=== PATIENT | female | born 1940 | race Caucasian/White ===

== ENCOUNTER 2018-05-09 17:20 | Inpatient (IN) | payer OTHER, MEDICARE ==
[~2018-05-09] VITALS: Ht 160 cm; Wt 67.8 kg
[2018-05-09 17:35] VITALS: Ht 160 cm; Wt 67.8 kg
[2018-05-09 18:25] LABS: BASOPHIL % 0.3 % (0-2)
[2018-05-09 18:27] LABS: PLATELET COUNT 408 x10^3mcL (130-400); RED CELL DISTRIBUTION WIDTH 16.2 % (11.5-14.5)
[2018-05-09 18:28] LABS: UA SPECIFIC GRAVITY 1.025 (1.005-1.035); microscopic required? YES; urine erythrocyte TRACE (NEGATIVE)
[2018-05-09 18:38] LABS: CALCIUM 9.8 mg/dL (8.5-10.1); CARBON DIOXIDE 24.5 mmol/L (21-32); CHLORIDE SERUM 104 mmol/L (98-107); GLUCOSE SERUM 148 mg/dL (74-106); POTASSIUM SERUM 3.5 mmol/L (3.5-5.1); SODIUM SERUM 142 mmol/L (136-145)
[2018-05-09 18:42] LABS: AMPHETAMINE QUAL UR NONE DETECTED (See below)
[2018-05-09 18:51] LABS: ALBUMIN 3.7 g/dL (3.4-5.0); ALKALINE PHOSPHATASE 67 U/L (46-116); ALT/SGPT 29 U/L (14-59); AMYLASE 107 U/L (25-115); AST/SGOT 15 U/L (15-37); CHOLESTEROL 164 mg/dL (<200); HDL CHOLESTEROL 51 mg/dL (40-60); LIPASE 411 IU/L (73-393); MAGNESIUM 1.6 mg/dL (1.8-2.4); TOTAL PROTEIN, SERUM 7.6 g/dL (6.4-8.2)
[2018-05-09] MEDS ORDERED: CATAPRES0.1 MG PO (19:49)
[2018-05-09] MEDS ORDERED: LISINOPRIL10 MG PO (19:50)
[2018-05-09] MEDS ORDERED: SEROQUEL100 MG PO (19:50)
[2018-05-09] MEDS ORDERED: MAC100 PO (19:50)
[2018-05-09] MEDS ORDERED: AMBIEN5 MG PO (19:50)
[2018-05-09] MEDS ORDERED: FLONS (19:51)
[2018-05-09] MEDS ORDERED: ASPIR 8181 MG PO (19:51)
[2018-05-09] MEDS ORDERED: FENOFIBRATE145 M1 PO (19:51)
[2018-05-09] MEDS ORDERED: GLIMEPIRIDE1 M1 PO (19:51)
[2018-05-09] MEDS ORDERED: LEVOTHYROXINE0.05 M2 PO (19:51)
[2018-05-09] MEDS ORDERED: METFORMIN HCL850 MG PO (19:52)
[2018-05-09] MEDS ORDERED: KENALOG-4040 MG/ML TOP (19:53)
[2018-05-09] MEDS ORDERED: DEPAKOTE500 MG PO (19:56)
[2018-05-09] MEDS ORDERED: SEROQUEL50 M1 PO (19:56)
[2018-05-09 20:02] LABS: CHOLESTEROL/HDL RATIO 3.3; PHOSPHOROUS 3.3 mg/dL (2.5-4.9)
[2018-05-09 20:10] LABS: FREE T4 1.26 ng/dL (0.76-1.46); FREE THYROXINE INDEX 2.9 ug/dL (1.4-4.5); T4(THYROXINE) 7.9 ug/dL (4.7-13.3)
[2018-05-09 20:56] VITALS: BP 154/69
[2018-05-10 01:03] LABS: T3 TOTAL 0.73 ng/mL
[2018-05-10 05:46] VITALS: BP 158/62
[2018-05-10 06:12] LABS: BASOPHIL % 0.5 % (0-2); PLATELET COUNT 341 x10^3mcL (130-400)
[2018-05-10 06:20] LABS: RED CELL DISTRIBUTION WIDTH 16.2 % (11.5-14.5)
[2018-05-10 06:31] LABS: CHLORIDE SERUM 106 mmol/L (98-107); CREATININE SERUM 0.7 mg/dL (0.6-1.0); GLUCOSE SERUM 81 mg/dL (74-106); MAGNESIUM 1.7 mg/dL (1.8-2.4); PHOSPHOROUS 3.2 mg/dL (2.5-4.9); POTASSIUM SERUM 3.1 mmol/L (3.5-5.1); SODIUM SERUM 142 mmol/L (136-145)
[2018-05-10 09:24] VITALS: BP 118/52
[2018-05-10 13:56] VITALS: BP 124/55
[2018-05-10 17:27] VITALS: BP 121/60
[2018-05-10 21:57] VITALS: BP 126/53
[2018-05-11 05:54] VITALS: BP 126/54
[2018-05-11 06:17] LABS: CALCIUM 9.2 mg/dL (8.5-10.1); CARBON DIOXIDE 28.6 mmol/L (21-32); CHLORIDE SERUM 112 mmol/L (98-107); CREATININE SERUM 0.8 mg/dL (0.6-1.0); GLUCOSE SERUM 81 mg/dL (74-106); MAGNESIUM 1.9 mg/dL (1.8-2.4); PHOSPHOROUS 3.1 mg/dL (2.5-4.9); SODIUM SERUM 147 mmol/L (136-145)
[2018-05-11 06:42] LABS: BASOPHIL % 0.4 % (0-2); PLATELET COUNT 345 x10^3mcL (130-400)
[2018-05-11 09:45] VITALS: BP 128/50
[2018-05-11 12:51] VITALS: BP 151/71
[2018-05-11 17:40] VITALS: BP 135/66
[2018-05-11 21:13] VITALS: BP 154/70
[2018-05-12 05:36] VITALS: BP 137/61
[2018-05-12 06:50] LABS: BASOPHIL % 0.6 % (0-2); PLATELET COUNT 346 x10^3mcL (130-400)
[2018-05-12 07:11] LABS: RED CELL DISTRIBUTION WIDTH 16.1 % (11.5-14.5)
[2018-05-12 08:28] VITALS: BP 139/55
[2018-05-12 08:28] LABS: CALCIUM 8.9 mg/dL (8.5-10.1); CARBON DIOXIDE 27.5 mmol/L (21-32); CHLORIDE SERUM 105 mmol/L (98-107); CREATININE SERUM 0.7 mg/dL (0.6-1.0); GLUCOSE SERUM 89 mg/dL (74-106); MAGNESIUM 1.9 mg/dL (1.8-2.4); PHOSPHOROUS 3.2 mg/dL (2.5-4.9); POTASSIUM SERUM 3.5 mmol/L (3.5-5.1); SODIUM SERUM 140 mmol/L (136-145)
[2018-05-12 12:48] VITALS: BP 142/63
[2018-05-12 16:41] VITALS: BP 141/60
[2018-05-12 17:37] VITALS: BP 141/60
[2018-05-12 19:40] VITALS: BP 121/60
== END 2018-05-12 19:46 | disposition short-term general hospital (02) | DRG 73 ==
LOC: ED 17:20 → DU 19:20 → EDBEDREQ 19:30 → DU 20:34 → MU 05-12 12:37
PROVIDERS: Emergency Medicine; Internal Medicine
DX: G90.9 Disorder of the autonomic nervous system, unspecified (principal); N17.0 Acute kidney failure with tubular necrosis; G93.41 Metabolic encephalopathy; N39.0 Urinary tract infection, site not specified; F31.4 Bipolar disorder, current episode depressed, severe, without psychotic features; E87.2 Acidosis; E11.65 Type 2 diabetes mellitus with hyperglycemia; R55 Syncope and collapse; E83.42 Hypomagnesemia; R00.2 Palpitations; E03.9 Hypothyroidism, unspecified; I10 Essential (primary) hypertension; Z79.4 Long term (current) use of insulin; Z68.23 Body mass index [BMI] 23.0-23.9, adult
CPT/HCPCS: 82962; 83880; 84439; G0480; J0696; J1956; J7030; Q0092